=== PATIENT | male | born 1955 | race Caucasian/White ===

== ENCOUNTER 2018-11-23 13:09 | Emergency (ER) | payer OTHER ==
[~2018-11-23] VITALS: Ht 180.3 cm; Wt 97.5 kg
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
[2018-11-23] MEDS ORDERED: MORPHINE SULFATE IV STA (13:13)
[2018-11-23 13:18] VITALS: BP 107/80
[2018-11-23 13:19] LABS: MEAN CELL HGB 31.8 pg (26-34); MEAN CELL HGB CONCENTRATION 35.2 g/dL (33-37); MEAN CORP VOLUME 90.3 fL (78-100); MEAN PLATELET VOLUME 10.9 fL (7.8-11.0); RED CELL DISTRIBUTION WIDTH 12.7 % (11.5-14.5); WHITE BLOOD CELL 12.8 10^3/uL (4.5-11.0)
--- NOTE | 2018-11-23 13:26 | NUR ---
ABRASION 1258 DOCTOR MILDRED TO ROOM, C-SPINE HELD AND PATIENT ROLLED TO BACK, DOCTOR MILDRED INSPECTED THE AREA AND BACK BOARD REMOVED, NECK THEN EXAMINED AND C-COLLAR REMOVED, ABRASIONS NOTED TO BACK AND UPPER SHOULDER AREA. RIGHT FOREARM SKIN TEAR CLEANED WITH APPROX 40CC OF STERILE WATER AND STERI STRIPS APPLIED. DEFORMITY NOTED TO LEFT KNEE. PATIENT CONTINUES TO COMPLAIN OF RIGHT FOREARM PAIN.
--- NOTE | 2018-11-23 13:29 | NUR ---
DPS DPS AT BEDSIDE.
[2018-11-23 13:37] LABS: CALCIUM 9.5 mg/dL (8.4-10.5); CARBON DIOXIDE 27.9 mmol/L (20.0-32)
[2018-11-23 13:40] VITALS: BP 105/80
--- NOTE | 2018-11-23 13:40 | NUR ---
XRAY AN FROM RADIOLOGY TO ROOM FOR XRAY.
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
[2018-11-23 14:10] VITALS: BP 106/63
--- NOTE | 2018-11-23 14:12 | NUR ---
SHIMA LEVY ON THE PHONE WITH [facility], THEY WILL HAVE DOCTOR RONQUILLO LOOK AT THE XRAYS AND CALL THE ED BACK.
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
--- NOTE | 2018-11-23 14:20 | NUR ---
SHIMA AFTER TALKING WITH DOCTOR RONQUILLO, PATIENT NEEDS TO BE TRANSFERRED.
--- NOTE | 2018-11-23 14:45 | NUR ---
KNEE IMMOBLIZER KNEE IMMOBLIZER APPLIED, PATIENT TOLERATED WELL.
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
--- NOTE | 2018-11-23 15:04 | NUR ---
status AFTER TALKING WITH ORTHO AT [facility], PATIENT WILL BE SENT HOME TO FOLLOW UP ON MONDAY.
--- NOTE | 2018-11-23 15:17 | NUR ---
IV 20G IV D/C'D TIP INTACT TO LEFT WRIST.
[2018-11-23 15:58] VITALS: BP 122/64
[2018-11-23 16:07] VITALS: BP 122/64
== END 2018-11-23 16:07 | disposition home or self-care (01) ==
LOC: ER 13:09
DX: S52.371A Galeazzi's fracture of right radius, initial encounter for closed fracture (principal); S82.891A Other fracture of right lower leg, initial encounter for closed fracture; S80.12XA Contusion of left lower leg, initial encounter; F17.210 Nicotine dependence, cigarettes, uncomplicated; V89.2XXA Person injured in unspecified motor-vehicle accident, traffic, initial encounter; Y93.H3 Activity, building and construction; Y92.410 Unspecified street and highway as the place of occurrence of the external cause; Y99.0 Civilian activity done for income or pay
CPT/HCPCS: 29505; 36415; 71045; 72170; 80053; 85027; 85610; 96374; 99285; 73090-RT; 73562-LT; 73630-RT